=== PATIENT | female | born 1955 | race Native Hawaiian/Other Pacific Islander ===

== ENCOUNTER 2017-06-06 10:41 | Outpatient (CLI) | payer OTHER | END 2017-06-06 19:05 | disposition home or self-care (01) | LOC: MAMMO 10:41 | DX: Z12.31 Encounter for screening mammogram for malignant neoplasm of breast (principal); M81.8 Other osteoporosis without current pathological fracture ==

== ENCOUNTER 2019-07-30 11:18 | Outpatient (CLI) | payer OTHER | END 2019-07-30 20:09 | disposition home or self-care (01) | LOC: MAMMO 11:18 | DX: Z12.31 Encounter for screening mammogram for malignant neoplasm of breast (principal); M81.8 Other osteoporosis without current pathological fracture ==

== ENCOUNTER 2021-02-17 14:09 | Outpatient (CLI) | payer OTHER | END 2021-02-17 22:19 | disposition home or self-care (01) | LOC: MAMMO 14:09 | PROVIDERS: ATTEND Family Medicine | DX: Z12.31 Encounter for screening mammogram for malignant neoplasm of breast (principal); M81.8 Other osteoporosis without current pathological fracture ==

== ENCOUNTER 2022-08-19 09:25 | Outpatient (CLI) | payer OTHER | END 2022-08-19 19:52 | disposition home or self-care (01) | LOC: MAMMO 09:25 | PROVIDERS: ATTEND Family Medicine | DX: Z12.31 Encounter for screening mammogram for malignant neoplasm of breast (principal) ==

== ENCOUNTER 2023-02-23 12:48 | Outpatient (CLI) | payer OTHER | END 2023-02-23 19:24 | disposition home or self-care (01) | LOC: RAD 12:48 | PROVIDERS: ATTEND Family Medicine | DX: M81.8 Other osteoporosis without current pathological fracture (principal); Z13.820 Encounter for screening for osteoporosis ==